=== PATIENT | male | born 1990 | race African-American/Black ===

== ENCOUNTER 2017-10-07 13:27 | Observation (INO) | payer OTHER ==
[~2017-10-07] VITALS: Ht 180.3 cm; Wt 151.0 kg
[~2017-10-07 13:27] MED LIST: AMOXICILLIN875 M1 PO; PERCOCET 5-3251 EACH PO
[2017-10-07 14:27] LABS: ABSOLUTE BASOPHIL COUNT 0 /CUMM (0.0-0.2); ABSOLUTE EOSINOPHIL COUNT 0 /CUMM (0.0-0.7); ABSOLUTE GRANULOCYTE CT 7.4 /CUMM (1.4-6.5); ABSOLUTE LYMPH COUNT 1.4 /CUMM (1.2-3.4); ABSOLUTE MONOCYTE COUNT 0.8 /CUMM (0.10-0.60); BASOPHIL % 0.2 % (0.0-2.0); EOSINOPHIL % 0 % (0-5); GRANULOCYTE % 77.1 % (42.2-75.2); HEMATOCRIT 46.5 % (42-52); MEAN CORPUSCULAR VOLUME 82.1 FL (80.0-94.0); MEAN PLATELET VOLUME 7.6 FL (7.4-10.4); PLATELET COUNT 199 /CUMM (130-400); RBC DISTRIBUTION WIDTH 14.4 % (11.5-14.5); RED BLOOD CELL CT 5.67 /CUMM (4.70-6.10); WHITE BLOOD CELL COUNT 9.6 /CUMM (4.8-10.8)
--- NOTE | 2017-10-07 14:32 | ED GI/GU/ABDOMINAL COMPLAINT ---
History of Present Illness General Chief Complaint: General Adult Stated Complaint: ?KIDNEY STONES,VOMITING,FEVER,LOSS OF APPETITE Source: patient, old records Exam Limitations: clinical condition Vital Signs & Intake/Output Vital Signs & Intake/Output Vital Signs Date Time Temp Pulse Resp B/P B/P Pulse O2 O2 Flow FiO2 Mean Ox Delivery Rate 10/07 1525 98 Room Air 10/07 1401 104.0 111 22 147/81 98 Room Air Room Air Allergies Coded Allergies: No Known Allergies (10/07/17) Reconcile Medications Oxycodone HCl/Acetaminophen (Percocet 5-325 MG Tablet) 5 MG-325 MG TABLET 1 TAB PO BID PRN pain Triage Note: PT TO TRIAGE FOR INCREASED PAIN TO LEFT BACK ABD AND GROIN AFTER BEING DX WITH A KIDNEY STONE. PT STATES HE HAS HAD FEVERS FOR A COUPLE DAYS. Triage Nurses Notes Reviewed? yes Onset: Abrupt Duration: week(s):, constant, continues in ED Timing: recent history Quality/Severity: moderate, sharpness, severe Location: left flank, left lower quadrant, left upper quadrant Activities at Onset: none HPI: 27-year-old male comes into the emergency room with persistent left flank pain fever chills. Patient was seen here a couple weeks ago and diagnosed with kidney stone. He followed up with a urologist. The stones were small enough that they were given a pass on their own hopefully. He said increased left flank pain fevers with pain wrapping around to his abdomen. Getting progressively worse. Comes in for further evaluation. Past History Travel History Traveled to [place] past 21 day No Medical History Any Pertinent Medical History? see below for history Respiratory: asthma Surgical History Surgical History: non-contributory Psychosocial History What is your primary language Tajik Tobacco Use: Never used Family History Hx Contributory? No Review of Systems Review of Systems Constitutional: Reports: see HPI. EENTM: Reports: no symptoms. Respiratory: Reports: no symptoms. Cardiovascular: Reports: no symptoms. GI: Reports: no symptoms. Genitourinary: Reports: see HPI. Musculoskeletal: Reports: no symptoms. Skin: Reports: no symptoms. Neurological/Psychological: Reports: no symptoms. Hematologic/Endocrine: Reports: no symptoms. Immunologic/Allergic: Reports: no symptoms. All Other Systems: Reviewed and Negative Physical Exam Physical Exam General Appearance: well developed/nourished, alert, awake, severe distress Head: atraumatic, normal appearance Eyes: Bilateral: normal appearance. Ears, Nose, Throat, Mouth: hearing grossly normal, moist mucous membrane Neck: normal inspection Respiratory: no respiratory distress Gastrointestinal: soft Back: CVA tenderness (L) Extremities: normal range of motion Neurologic/Psych: awake, alert, oriented x 3 Skin: intact, normal color Core Measures ACS in differential dx? No Sepsis Present: No Sepsis Focused Exam Completed? No Progress Differential Diagnosis: prostatitis, pyelonephritis, ureterolithiasis, urinary retention, urethritis, UTI/pyelo, sepsis Plan of Care: Orders Procedure Date/time Status LACTIC ACID 10/07 1700 Active Add-on Test (ER Only) 10/07 1524 Active PARTIAL THROMBOPLASTIN TIME 10/07 141 Complete PROTHROMBIN TIME 10/07 141 Complete CULTURE,URINE 10/07 1400 Active BLOOD CULTURE 10/07 1400 Active URINALYSIS 10/07 1399 Active LACTIC ACID 10/07 1400 Complete COMPREHENSIVE METABOLIC PANEL 10/07 1400 Complete CBC WITHOUT DIFFERENTIAL 10/07 1399 Complete Laboratory Tests 10/07/17 1414: Anion Gap 9, Estimated GFR 48 L, BUN/Creatinine Ratio 8.2, Glucose 123 H, Lactic Acid 1.8, Calcium 9.3, Total Bilirubin 0.5, AST 34, ALT 47, Alkaline Phosphatase 28, Total Protein 8.4 H, Albumin 4.7, Globulin 3.7, Albumin/ Globulin Ratio 1.3, PT 13.7 H, INR 1.25 H, APTT 35, CBC w Diff NO MAN DIFF REQ , RBC 5.67, MCV 82.1, MCH 27.0, MCHC 33.0, RDW 14.4, MPV 7.6, Gran % 77.1 H, Lymphocytes % 14.5 L, Monocytes % 8.2, Eosinophils % 0, Basophils % 0.2, Absolute Granulocytes 7.4 H, Absolute Lymphocytes 1.4, Absolute Monocytes 0.8 H, Absolute Eosinophils 0, Absolute Basophils 0 Microbiology 10/07 1443 BLOOD: Blood Culture - RECD 10/07 141 BLOOD: Blood Culture - RECD 10/07 1399 URINE ROUT: Urine Culture - ORD Initial ED EKG: none Departure Departure Disposition: STILL A PATIENT Condition: Stable Clinical Impression Primary Impression: Hydronephrosis with renal and ureteral calculus obstruction Referrals: Patient Has No Primary Care Dr (PCP/Family) Departure Forms: Customer Survey General Discharge Information Admission Note Spoke With: Ginger Meier MD Documentation of Exam: Documentation of any treatments & extenuating circumstances including Concerns Regarding Discharge (functional status, medication knowledge or non-compliance, living conditions, etc.) that warrant an admission rather than observation: IV fluids. Nothing by mouth after midnight. IV antibiotics. IV pain control. Critical Care Note Critical Care Note Critical Care Time: 30-74 min (45)
[2017-10-07 15:46] LABS: PT 13.7 SEC (9.4-12.5); PTT 35 SEC (25-37)
--- NOTE | 2017-10-07 16:19 | History & Physical ---
Angeles Donato 10/07/17 1616: General Information and HPI Source of Information: patient, family Exam Limitations: no limitations History of Present Illness: This is a 27 yo male, previously healthy, w/o any PMHx. He presented to the ED today w/ fever, nausea, vomiting and decreased appetite starting over the last few days secondary to a kidney stone that he has been unable to pass. The pt was seen in the ED approximately 2.[address] scan was done which showed multiple stones (2 to 3 mm in size)in his left ureter w/ moderate hydronephrosis. The right kidney showed no hydronephrosis w/ 2-3 mm stones in the mid right ureter. Pt was sent home for conservative management w/ fluids and follow up in Dr. Feng's office. Over the past few weeks, the pt has been straining his urine and hasn't seen any stones. He decided to come to ED today d /t his increasing left sided flank pain and the onset of his constitutional symptoms over past few days. Pt was given IV fluid bolus and rocephin in the ED. Allergies/Medications Allergies: Coded Allergies: No Known Allergies (10/07/17) Home Med list Oxycodone HCl/Acetaminophen (Percocet 5-325 MG Tablet) 5 MG-325 MG TABLET 1 TAB PO BID PRN pain Past History Travel History Traveled to [place] past 21 day No Medical History Respiratory: asthma Surgical History Surgical History: non-contributory Review of Systems Review of Systems Constitutional: Reports: fever. EENTM: Reports: nasal congestion. GI: Reports: abdominal pain, vomiting. Genitourinary: Reports: hematuria. Denies: dysuria, pain. Exam & Diagnostic Data Last 24 Hrs of Vital Signs/I&O Vital Signs Date Time Temp Pulse Resp B/P B/P Pulse O2 O2 Flow FiO2 Mean Ox Delivery Rate 10/07 1609 99.8 96 18 136/63 100 Room Air 10/07 1525 98 Room Air 10/07 1401 104.0 111 22 147/81 98 Room Air Room Air Intake & Output 10/07 1600 10/07 0800 10/07 0000 Intake Total 1000 Output Total Balance 1000 Intake, IV 1000 Physical Exam General Appearance Alert, Oriented X3, No Acute Distress Skin Temp/Moisture Exam: Hot/Diaphoretic Sepsis Skin Exam (color): Normal for Ethnicity Cardiovascular Regular Rate, Normal S1, Normal S2 Lungs Clear to Auscultation Abdomen Normal Bowel Sounds, Soft, No Tenderness (flank pain) Last 24 Hrs of Labs/Martin: Laboratory Tests 10/07/17 1414: Anion Gap 9, Estimated GFR 48 L, BUN/Creatinine Ratio 8.2, Glucose 123 H, Lactic Acid 1.8, Calcium 9.3, Total Bilirubin 0.5, AST 34, ALT 47, Alkaline Phosphatase 28, Total Protein 8.4 H, Albumin 4.7, Globulin 3.7, Albumin/ Globulin Ratio 1.3, PT 13.7 H, INR 1.25 H, APTT 35, CBC w Diff NO MAN DIFF REQ , RBC 5.67, MCV 82.1, MCH 27.0, MCHC 33.0, RDW 14.4, MPV 7.6, Gran % 77.1 H, Lymphocytes % 14.5 L, Monocytes % 8.2, Eosinophils % 0, Basophils % 0.2, Absolute Granulocytes 7.4 H, Absolute Lymphocytes 1.4, Absolute Monocytes 0.8 H, Absolute Eosinophils 0, Absolute Basophils 0 Microbiology 10/07 1443 BLOOD: Blood Culture - RECD 10/07 1416 BLOOD: Blood Culture - RECD 10/07 1400 URINE ROUT: Urine Culture - ORD Assessment/Plan Assessment: This a 27 yo male, previously healthy, w/o any significant PMHx that presented with fever, nausea, vomiting and decreased appetite starting over the last few days secondary to left hydronephrosis and kidney stones in both ureters he has been unable to pass over past 2.5 weeks. Plan: -Place patient in observation to the surgical service, Dr. Meier -NPO after midnight -Pt will go for a Cytoscopy w/ possible uretheral stent placement/lithotripsy tomorrow w/ Dr. Meier -c/w ordered IV fluids -Zofran prn for nausea -IV tylenol for fever -Pain control as ordered -Rochepin was given in ED, continue -Pending urine cultures, blood cultures drawn As Ranked By This Provider Problem List: 1. Kidney stones 2. Hydronephrosis 3. Hydronephrosis with renal and ureteral calculus obstruction 4. Ureterolithiasis Core Measures/Misc (11/15) Acute Coronary Syndrome ACS Diagnosis: No Congestive Heart Failure Congestive Heart Failure Diagnosis No Cerebrovascular Accident CVA/TIA Diagnosis: No VTE (View Protocol) VTE Risk Factors Obesity No Mechanical VTE Prophylaxis d/t N/A MechProphylax Ordered No VTE Pharm Prophylaxis d/t Surgical Contraindication Sepsis (View protocol) Sepsis Present: Yes If YES complete Sepsis Event Note If YES complete Sepsis Event Note Ginger Meier MD 10/08/17 1128: Core Measures/Misc (11/15) Sepsis (View protocol) If YES complete Sepsis Event Note If YES complete Sepsis Event Note
[2017-10-07 18:38] VITALS: BP 140/86
[2017-10-07 22:21] VITALS: BP 120/78
[2017-10-08 07:20] VITALS: BP 140/82
[2017-10-08 07:44] LABS: ABSOLUTE BASOPHIL COUNT 0 /CUMM (0.0-0.2); ABSOLUTE EOSINOPHIL COUNT 0.1 /CUMM (0.0-0.7); ABSOLUTE GRANULOCYTE CT 5.8 /CUMM (1.4-6.5); ABSOLUTE MONOCYTE COUNT 0.9 /CUMM (0.10-0.60); BASOPHIL % 0.3 % (0.0-2.0); EOSINOPHIL % 1.2 % (0-5); GRANULOCYTE % 58.8 % (42.2-75.2); HEMATOCRIT 44.8 % (42-52); MEAN CORPUSCULAR HGB 27.3 PG (27.0-31.0); MEAN CORPUSCULAR HGB CONC 32.8 G/DL (33.0-37.0); MEAN PLATELET VOLUME 8.1 FL (7.4-10.4); PLATELET COUNT 158 /CUMM (130-400); RBC DISTRIBUTION WIDTH 14.3 % (11.5-14.5); WHITE BLOOD CELL COUNT 9.8 /CUMM (4.8-10.8)
--- NOTE | 2017-10-08 10:10 | RADIOLOGY REPORT ---
EXAMINATION: CR ABDOMEN/INTRAOPERATIVE FLUOROSCOPY CLINICAL INDICATION: Bilateral ureteroscopy with stent placement. COMPARISON: CT scan of the abdomen and pelvis dated 09/20/2017. TECHNIQUE/FINDINGS: Fluoroscopic equipment was dedicated to the operating room for the performance of an intraoperative procedure. Several (12) spot films were acquired and are archived in PACS. Please refer to operative notes for procedural detail. FLUOROSCOPY TIME: 35 seconds. IMPRESSION: Administrative dictation for intraoperative fluoroscopy and image archiving in PACS. Please refer to operative notes for details.
[2017-10-08 10:35] VITALS: BP 126/72
--- NOTE | 2017-10-08 11:28 | Operative Report ---
Operative/Inv Procedure Report Surgery Date: 10/08/17 Name of Procedure: bilateral ureteroscopy with laser lithotripsy and bilateral stents Pre-Operative Diagnosis: bilateral ureteral stones Post-Operative Diagnosis: no ureteral stones Estimated Blood Loss: scant Surgeon/Psychiatric Social Worker Supervisor: Ginger Meier MD Anesthesia: laryngeal mask airway Drains: 6x28cm stents bilaterally Specimens: none Complications: unable to traverse right ureter with flexible ureteroscope no stones seen in left ureter or kidney and none seen in right ureter Condition: stable Operative Indication: bilateral ureteral stones on previous CT with fever of 104 last PM Operative/Procedure Note Note: The 27-year-old male with a history of bilateral ureteral stones was seen in the office for consultation. He was not interested in intervention and wanted conservative management with increased fluid intake and Flomax. He was seen in the ER yesterday however for increasing pain and fever of the 104. He was scheduled for left ureteroscopy with stent placement and possible ureteroscopy on the right side given his status of bilateral ureteral stones. He was given the risks, benefits, and alternatives and all questions were answered. He was very hesitant to have surgery as he has had stone surgery previously and felt it was very uncomfortable postoperatively. He is reassured and consent was signed and all questions were answered in the holding area. Patient was taken to the operating placed on the operating table in supine position. Timeout was performed. SCDs were placed bilaterally. IV Cipro 400 mg was given. He was placed in the dorsolithotomy position and prepped and draped in standard sterile fashion. Cystoscopy was performed and the bladder was globally inspected. There were no lesions or abnormalities and the ureteral orifices were easily identified. The left ureteral orifice was cannulated with a solo part guidewire with fluoroscopic guidance. A semirigid was then placed along the wire however his ureter was narrow and did not accommodate the semirigid ureteroscope very well. As result a second wire MyLife was then placed and the semirigid was placed over this wire. Care was taken not to injure the ureter and the semirigid was able to be placed up to the UPJ. No stones were seen in the course of the entire ureter. As a result superstiff wire was placed back in and the semirigid ureteroscope was removed. A flexible digital ureteroscope was then placed over the Super Stiff wire and the renal calyces were examined. The upper middle and lower pole were examined twice with fluoroscopic guidance and no stones were seen. The flexible digital ureteroscope was then removed while examining the ureter again and again no stones were seen. A cystoscope was by 28 cm ureteral stent was then placed over the solo guidewire with fluoroscopic guidance and was seen to be in good position. The wire was removed. Attention was then turned to the right side of the urinary system. A solo part guidewire was placed under fluoroscopic guidance. Was seen to be in good position fluoroscopically. A semirigid was then attempted to be traversed up the ureter along the Solo wire however it did not accommodate the ureteroscope again has a did not on the left side. As result a dual-lumen catheter was attempted to be placed over the solo guidewire however it would not traverse the UVJ region. The flexible digital ureteroscope was then attempted to be placed over the solo guidewire and again it would not traverse the UVJ region. The semirigid ureteroscope was then placed over the solo part wire and it was able to traverse the UVJ region and the ureter was examined up to the upper ureter. No ureteral stones were appreciated or visualized. The solo guidewire was placed back into the right urinary system into the renal pelvis with fluoroscopic guidance. This wire was then used with the cystoscope to place a 6 x 28 cm ureteral stent. Possibility of balloon dilation of the lower UVJ region was considered however given his 104 temperature and active UTI, I opted to choose the more conservative management. His bladder was emptied. A final KUB showed the bilateral ureteral stents were in good position. He was cleaned with Betadine sedation was transferred to the recovery room stable condition. Findings: No stones in either no stones in either ureter and none in the left kidney Discharge Disposition: PACU
[2017-10-08] MEDS ORDERED: CIPRO500 M1 PO (11:37)
[2017-10-08] MEDS ORDERED: PERCOCET 5-3251 EACH PO (11:37)
--- NOTE | 2017-10-08 11:42 | Patient Discharge Instructions ---
Discharge Instructions General Discharge Information You were seen/treated for: kidney stones, possible sepsis/urologic infection You had these procedures: cystoscope, ureteral stenting Watch for these problems: fever, severe pain, vomiting, inability to urinate Special Instructions: take antibiotics as directed and pain meds as needed. avoid motrin/advil/aleve/ ibuprofen. you may take tylenol for pain instead of the percocet Diet Continue normal diet: Yes Activity Full Activity/No Limits: Yes Acute Coronary Syndrome Inclusion Criteria At DC or during hospital stay patient has or had the following: ACS DIAGNOSIS No Discharge Core Measures Meds if any: Prescribed or Continued at Discharge Meds if any: NOT Prescribed or Continued at Discharge Congestive Heart Failure Inclusion Criteria At DC or during hospital stay patient has or had the following: CHF DIAGNOSIS No Discharge Core Measures Meds if any: Prescribed or Continued at Discharge Meds if any: NOT Prescribed or Continued at Discharge Cerebrovascular accident Inclusion Criteria At DC or during hospital stay patient has or had the following: CVA/TIA Diagnosis No Discharge Core Measures Meds if any: Prescribed or Continued at Discharge Meds if any: NOT Prescribed or Continued at Discharge Venous thromboembolism Inclusion Criteria VTE Diagnosis No VTE Type NONE VTE Confirmed by (Test) NONE Discharge Core Measures - Per Current guidelines, there needs to be overlap - treatment for the first 5 days of Warfarin therapy. - If discharged on Warfarin prior to 5 days of - overlap therapy, the patient will need to be - assessed for post discharge needs including - *Post discharge parental anticoagulation - *Warfarin and/or parental anticoagulation education - *Follow up date to check INR post discharge At least 5 days overlap therapy as Inpatient No Meds if any: Prescribed or Continued at Discharge Note: Overlap Therapy is Warfarin and Anticoagulant Meds if any: NOT Prescribed or Continued at Discharge
[2017-10-08 12:20] VITALS: BP 132/84
[2017-10-08 14:41] VITALS: BP 142/86
--- NOTE | 2017-10-08 16:54 | PN- Urology ---
Subjective Subjective: Pt with pain when he urinates. Is ok otherwise. Review of Systems Constitutional: Reports: no symptoms. EENTM: Reports: no symptoms. Cardiovascular: Reports: no symptoms. Respiratory: Reports: no symptoms. Gastrointestinal: Reports: no symptoms. Genitourinary: Reports: pain. Musculoskeletal: Reports: no symptoms. Skin: Reports: no symptoms. Neurological/Psychological: Reports: no symptoms. Hematologic/Endocrine: Reports: no symptoms. Immunologic/Allergic: Reports: no symptoms. Objective Vital Signs and I&Os Lying in bed, comfortable ABd soft, ND/NT no ibanez Physical Exam General Appearance: well developed/nourished, no apparent distress, alert, awake , comfortable Head: atraumatic, normal appearance Ears, Nose, Throat: normal ENT inspection Neck: normal inspection Respiratory: normal breath sounds Abdomen: soft, non-tender Rectal: deferred Extremities: normal inspection Neurologic/Psychiatric: awake, alert, oriented x 3 Skin: intact, normal color, warm/dry Reproductive: Normal male genitalia Assessment/Plan Assessment/Plan 27 yo male with a hx of bilateral ureteral stones s/p bilateral URS with stent placement. No stones found on URS to kidneys today. He has discomfort from the stents. He had a fever of 104 yest. cont with abx and send home on total of 10D of cipro. Await urine cutlure. FU in the office next week. CT noncontrast prior to the appt and removal of stents. Core Measures Venous Thromboembolism VTE Risk Factors Surgery No Mechanical VTE Prophylaxis d/t Early Ambulation No VTE Pharm Prophylaxis d/t LowRisk-No Interven Req'd
--- NOTE | 2017-10-08 16:59 | Surgical Discharge Summary ---
Visit Information Visit Dates Admission Date: 10/07/17 Discharge Date: 10/09/17 History of Present Illness Chief Complaint: flank pain and fever Medical History Blood Transfusion Hx: No Neurological: NONE EENT: NONE Cardiovascular: NONE Respiratory: asthma Gastrointestinal: NONE Hepatic: NONE Renal: nephrolithiasis Musculoskeletal: NONE Psychiatric: NONE Endocrine: NONE Blood Disorders: NONE Cancer(s): NONE IMPLEMENTATION SPECIALIST/Reproductive: NONE History of MRSA: No Active VRE Infection: No History of CDIFF: No Tetanus Status: up to date Surgical History Pertinent Surgical History: non-contributory Psychosocial History Where Do You Live? Home Who Do You Live With? Family Services at Home: None What is Your Primary Language? Azeri Review of Systems: reveiwed- stent discomfort only with void Hospital Course Course Attending Physician: Hardeep HOPKINS,Ginger Primary Care Physician: Patient Has No Primary Care Dr Hospital Course: admitted with fever of 104, resolved with IV abx and taken to OR with no issues in the OR or postop. Complications: no stones found Allergies: Coded Allergies: No Known Allergies (10/07/17) Disposition Summary Disposition Principal Diagnosis: fever with obstructing stones Additional Diagnosis: none Discharge Disposition: home or self care Discharge Instructions General Discharge Information Code Status: Full Code Patient's Diet: regular Patient's Activity: normal Follow-Up Instructions/Appts: FU next week
[2017-10-08 21:30] VITALS: BP 131/96
[2017-10-09 07:06] VITALS: BP 141/95
[2017-10-09 14:26] VITALS: BP 140/88
== END 2017-10-09 16:30 ==
LOC: ERH 13:27 → 2NB 16:08 → ERHI 16:08 → ENRESERV 16:45 → ENTRNSPT 17:55 → EDTRNSPTSTS 18:05 → 2NB 18:10 → CMPTRNSPT 18:33 → ENTRNSPT 10-08 09:45 → EDTRNSPTSTS 10-08 09:53 → EDTRNSPT 10-08 09:53 → CMPTRNSPT 10-08 10:04 → ENPENDDIS 10-09 14:18 → 2NB 10-09 16:30
PROVIDERS: Physician Assistant; Physician Assistant Medical
DX: N20.1 Calculus of ureter (principal); R10.84 Generalized abdominal pain; R50.9 Fever, unspecified
CPT/HCPCS: 36592; 76000; 81001; 82436; 87040; 87086; 96365; 96375; 96376; 99291; C2617; G0378; J0131; J0696; J1885; J2405